=== PATIENT | female | born 1935 | race Caucasian/White ===

== ENCOUNTER 2017-02-14 06:48 | Inpatient (IN) | payer MEDICARE ==
[~2017-02-14] VITALS: Ht 182.9 cm; Wt 86.9 kg
[~2017-02-14 06:48] MED LIST: CEFU250T11 PO; DCS100C PO; DULO30CA3 PO; GABA; GABA400C PO; GABAPENTIN PO; KCL10CCR PO; LORA1TAB PO; LRZ1T PO; MEMA10TA PO; NEBI5TAB8 PO; PREG75CA PO; QTP100T PO; QTP200T PO; QUET100T PO; QUET50TA PO; SULF-222 PO; VALS320T8 PO; ZPR20C PO; [UNRECOGNIZED DRUG - CODE] IM
--- OUTSIDE RECORDS SUMMARY | 2017-02-14 06:53 | XMS REPORT | Continuity of Care Document ---
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9 CHRONIC KIDNEY DIS NOS 05/05/2012 ZACH UMANA MD 790.6 ABN BLOOD CHEMISTRY NEC 10/23/2012 MOLLY BARNES, DALIA R Ot 276.0 10/23/2012 MOLLY BARNES, DALIA R Ot 294.10 10/23/2012 MOLLY BARNES, DALIA R Ot 331.0 10/23/2012 MOLLY BARNES, DALIA R Ot 401.9 10/23/2012 MOLLY BARNES, DALIA R Ot 584.9 10/23/2012 MOLLY BARNES, DALIA R Ot V03.82 04/23/2014 Ot 369.00 04/23/2014 Ot 782.1 04/23/2014 ANN CONWAY RETIREMENT CONSULTANT Ot 599.0 04/23/2014 ANN CONWAY RETIREMENT CONSULTANT Ot 780.60 04/28/2014 JOHN FOX MD Ot 294.10 04/28/2014 JOHN FOX MD Ot 331.0 04/28/2014 JOHN FOX MD Ot 780.09 04/28/2014 JOHN FOX MD Ot 780.39 Procedures Code [place] [address] ELECTROCARDIOGRAM REPORT TIN BRYAN MD 04/20/2012 Results Encounters ACCT No. Visit Date/Time Discharge Status Pt. Type Provider Facility Loc./Unit Complaint [id number] 04/20/2012 16:05:00 05/05/2012 14 :20:00 DIS Inpatient ZACH UMANA MD [facility] [id number] 04/20/2012 16:05:00 04/20/2012 23 :59:59 CLS Outpatient TIN BRYAN MD [id number] 12/17/2008 15:55:00 Document Registration [id number] 04/28/2014 07:55:00 2014 11:17:00 DIS Emergency RUDDY BARNES, JOHN Oneil [facility] ER [id number] 04/23/2014 12:34:00 2014 14:08:00 DIS Emergency ANN CONWAY APRN [facility] ER [id number] 11/01/2012 16:11:00 2012 23:59:59 CLS Outpatient [id number] 10/18/2012 10:53:00 2012 15:00:00 DIS Inpatient MOLLY BARNES, DALIA Merrill [address] [id number] 12/18/2011 13:49:00 Document Registration [id number] 03/08/2011 05:40:00 Document Registration [id number] 03/03/2011 10:47:00 Document Registration
[2017-02-14] MEDS: NS IV 500 ML 500 ML IV ONE ×2 (07:00→07:15)
[2017-02-14 07:01] LABS: BASOPHILS % (AUTO) 0 % (0-10); EOSINOPHILS % (AUTO) 0 % (0-10); LYMPHOCYTES # (AUTO) 0.3 X 10^3 (1.0-4.0); LYMPHOCYTES % (AUTO) 3 % (12-44); MEAN CORPUSCULAR HEMOGLOBIN 31 PG (25-34); MEAN CORPUSCULAR HGB CONC 33 G/DL (32-36); MEAN CORPUSCULAR VOLUME 92 FL (80-99); MEAN PLATELET VOLUME 10.3 FL (7.4-10.4); MONOCYTES # (AUTO) 0.3 X 10^3 (0.0-1.0); MONOCYTES % (AUTO) 3 % (0-12); NEUTROPHILS % (AUTO) 93 % (42-75); PLATELET COUNT 226 10^3/uL (130-400); RED BLOOD COUNT 4.42 10^6/uL (4.35-5.85); RED CELL DISTRIBUTION WIDTH 14.8 % (10.0-14.5); WHITE BLOOD COUNT 8.6 10^3/uL (4.3-11.0)
--- NOTE | 2017-02-14 07:02 | ED GI ---
General Chief Complaint: Abdominal/GI Problems Stated Complaint: GI BLEED Nursing Triage Note: per EMS patient had copious amounts of coffee ground emesis Sepsis Screen: No Definite Risk Source of Information: EMS, Long Term Records Exam Limitations: Physical Impairments (end-stage dementia) History of Present Illness Time Seen By Provider: 06:44 Initial Comments Patient has ER by EMS with a chief complaint per nursing staff. The patient was found about 5:30 this morning with copious amounts of black brown coffee-ground emesis appearing substance unquantified around the patient's mouth and on her person. She is unable to give any history given her early stage dementia. EMS says she has not spoke to them. This appears to be her baseline per her report. She is not on blood thinners or she express any trauma. She does not have a known history of GI bleed. She is not on a PPI. Nursing reported to EMS that last night she was found to have a temperature of 100 1201F and was given Tylenol. EMS reports afebrile at time of transport. Blood sugar is normal. No vomiting since EMS arrived and transported patient. Staff does not report any coughing or shortness of breath. When asked questions patient does not give any more than a grunt and reply. Does not follow commands. EMS has initiated a 20- gauge in the left antecubital fossa and started a 1 L normal saline. Allergies and Home Medications Allergies Coded Allergies: No Known Drug Allergies (Unverified , 03/03/11) Home Medications Cefuroxime Axetil 250 Mg Tablet, 250 MG PO BID for 10 Days, (Reported) 10 day course, started on 10-14-12 Docusate Sodium 100 Mg Capsule, 100 MG PO DAILY, (Reported) Duloxetine Hcl 30 Mg Cap, 30 MG PO DAILY, (Reported) Nebivolol Hcl 5 Mg Tablet, 5 MG PO DAILY, (Reported) Pregabalin 75 Mg Capsule, 75 MG PO BID, (Reported) Quetiapine Fumarate 100 Mg Tablet, 100 MG PO HS, (Reported) Trimethoprim/Sulfamethoxazole 1 Ea Tablet, 1 EA PO BID, #10 Prescribed by: ANN CONWAY on 04/23/14 1344 Valsartan 320 Mg Tablet, 320 MG PO DAILY, (Reported) Review of Systems Constitutional: see HPI (patient is demented and unable to give a review of systems.) Past Lyhqlcm-Fzpuyx-Aoozic Hx Patient Social History Alcohol Use: Denies Use Recreational Drug Use: No Smoking Status: Unknown if Ever Smoked Recent Foreign Travel: No Contact w/Someone Who Travel: No Recent Infectious Disease Expo: No Immunizations Up To Date Date of Pneumonia Vaccine: Oct 19, 2012 Date of Influenza Vaccine: Dec 26, 2013 Seasonal Allergies Seasonal Allergies: No Respiratory History of Respiratory Disorde: No Cardiovascular History of Cardiac Disorders: Yes Cardiac Disorders: Hypertension Neurological History of Neurological Disord: Yes (ALZHEIMERS) Reproductive System Hx Reproductive Disorders: No Gastrointestinal History of Gastrointestinal Di: Yes (CONSTIPATION) Musculoskeletal History of Musculoskeletal Dis: Yes (RANDOM JERKY MOVEMENTS) Endocrine History of Endocrine Disorders: No Psychosocial History of Psychiatric Problem: Yes (DELUSIONAL) Integumentary History of Skin or Integumenta: No Blood Transfusions History of Blood Disorders: No Physical Exam Vital Signs VS - Last 72 Hours, by Label 02/14/17 06:51 Temp 99.5 Pulse 113 Resp 18 B/P (MAP) 184/93 Pulse Ox 96 Capillary Refill : Less Than 3 Seconds General Appearance: no apparent distress HEENT: PERRL/EOMI, pharynx normal (absent of any coffee-ground emesis, dried blood or other brown/black substance.) Neck: non-tender, supple, normal inspection Respiratory: chest non-tender, lungs clear, normal breath sounds Cardiovascular: normal peripheral pulses, regular rate, rhythm, no edema, tachycardia (110-120) Peripheral Pulses: 2+ Dorsalis Pedis (R), 2+ Left Dors-Pedis (L), 2+ Radial Pulses (R), 2+ Radial Pulses (L) Gastrointestinal: normal bowel sounds, non tender, soft, No guarding, No tenderness, No mass Extremities: normal inspection, no pedal edema, normal capillary refill Back: normal inspection, no CVA tenderness Neurologic/Psychiatric: other (GCS is 9 but this is consistent with her baseline as the patient has end-stage dementia with apparent contractures. Localizes to pain and gives grunts only.) Skin: normal color, warm/dry Focused Exam Evaluation Lactate Level Laboratory Tests 02/14/17 07:25: Lactic Acid Level 2.37*H Lactic Acid Level Laboratory Tests Test 02/14/17 07:25 Lactic Acid Level 2.37 MMOL/L (0.50-2.00) *H Progress/Results/Core Measures Results/Orders Lab Results Laboratory Tests Test 02/14/17 06:53 02/14/17 07:00 02/14/17 07:25 Range/Units White Blood Count 8.6 4.3-11.0 10^3/uL Red Blood Count 4.42 4.35-5.85 10^6/uL Hemoglobin 13.5 11.5-16.0 G/DL Hematocrit 41 35-52 % Mean Corpuscular Volume 92 80-99 FL Mean Corpuscular Hemoglobin 31 25-34 PG Mean Corpuscular Hemoglobin Concent 33 32-36 G/DL Red Cell Distribution Width 14.8 H 10.0-14.5 % Platelet Count 226 130-400 10^3/uL Mean Platelet Volume 10.3 7.4-10.4 FL Neutrophils (%) (Auto) 93 H 42-75 % Lymphocytes (%) (Auto) 3 L 12-44 % Monocytes (%) (Auto) 3 0-12 % Eosinophils (%) (Auto) 0 0-10 % Basophils (%) (Auto) 0 0-10 % Neutrophils # (Auto) 8.0 H 1.8-7.8 X 10^3 Lymphocytes # (Auto) 0.3 L 1.0-4.0 X 10^3 Monocytes # (Auto) 0.3 0.0-1.0 X 10^3 Eosinophils # (Auto) 0.0 0.0-0.3 10^3/uL Basophils # (Auto) 0.0 0.0-0.1 10^3/uL Neutrophils % (Manual) 91 % Lymphocytes % (Manual) 3 % Band Neutrophils 6 % Blood Morphology Comment NORMAL Prothrombin Time 13.1 12.2-14.7 SEC INR Comment 1.0 0.8-1.4 Activated Partial Thromboplast Time 25 24-35 SEC Sodium Level 141 135-145 MMOL/L Potassium Level 4.4 3.6-5.0 MMOL/L Chloride Level 107 98-107 MMOL/L Carbon Dioxide Level 23 21-32 MMOL/L Anion Gap 11 5-14 MMOL/L Blood Urea Nitrogen 25 H 7-18 MG/DL Creatinine 1.15 0.60-1.30 MG/DL Estimat Glomerular Filtration Rate 45 BUN/Creatinine Ratio 22 Glucose Level 203 H 70-105 MG/DL Calcium Level 8.6 8.5-10.1 MG/DL Magnesium Level 1.8 1.8-2.4 MG/DL Total Bilirubin 1.2 H 0.1-1.0 MG/DL Aspartate Amino Transf (AST/SGOT) 118 H 5-34 U/L Alanine Aminotransferase (ALT/SGPT) 160 H 0-55 U/L Alkaline Phosphatase 58 40-136 U/L Total Protein 7.3 6.4-8.2 GM/DL Albumin 3.6 3.2-4.5 GM/DL Urine Color YELLOW Urine Clarity VERY CLOUDY H Urine pH 6 5-9 Urine Specific Cato 1.025 H 1.016-1.022 Urine Protein 2+ H NEGATIVE Urine Glucose (UA) NEGATIVE NEGATIVE Urine Ketones NEGATIVE NEGATIVE Urine Nitrite POSITIVE H NEGATIVE Urine Bilirubin NEGATIVE NEGATIVE Urine Urobilinogen NORMAL NORMAL MG/DL Urine Leukocyte Esterase 3+ H NEGATIVE Urine RBC (Auto) 4+ H NEGATIVE Urine RBC RARE /HPF Urine WBC >100 H /HPF Urine Squamous Epithelial Cells TNTC H /HPF Urine Crystals NONE /LPF Urine Bacteria MODERATE H /HPF Urine Casts NONE /LPF Urine Mucus NEGATIVE /LPF Urine Culture Indicated NO Lactic Acid Level 2.37 *H 0.50-2.00 MMOL/L My Orders Orders - VIOLETTA KIDD Ct Abdomen/Pelvis Wo (02/14/17 06:54) Cbc With Automated Diff (02/14/17 06:54) Comprehensive Metabolic Panel (02/14/17 06:54) Magnesium (02/14/17 06:54) Ua Culture If Indicated (02/14/17 06:54) Chest 1 View, Ap/Pa Only (02/14/17 06:54) Manual Differential (02/14/17 06:53) Lactic Acid Analyzer (02/14/17 07:08) Blood Culture (02/14/17 07:08) Sputum Culture (02/14/17 07:08) Protime With Inr (02/14/17 07:08) Partial Thromboplastin Time (02/14/17 07:08) O2 (02/14/17 07:08) Saline Lock/Iv-Start (02/14/17 07:08) Vital Signs Adult Sepsis Patie Q1H (02/14/17 07:08) Remove Rings In Anticipation O (02/14/17 07:08) Ns Iv 500 Ml (Sodium Chloride 0.9%) (02/14/17 07:08) Ceftriaxone Injection (Rocephin Injectio (02/14/17 07:15) Ns Iv 1000 Ml (Sodium Chloride 0.9%) (02/14/17 08:15) Medications Given in ED Current Medications Medications Dose Ordered Sig/Abhinav Route Start Time Stop Time Status Last Admin Dose Admin Ceftriaxone Sodium 1000 mg/ Sodium Chloride 50 ml @ 100 mls/hr ONCE ONCE IV 02/14/17 07:15 02/14/17 07:44 DC 02/14/17 07:31 100 MLS/HR Sodium Chloride 500 ml @ 0 mls/hr Q0M ONCE IV 02/14/17 07:08 02/14/17 07:10 DC 02/14/17 07:00 0 MLS/HR Vital Signs/I&O Vital Sign - Last 12Hours 02/14/17 06:51 Temp 99.5 Pulse 113 Resp 18 B/P (MAP) 184/93 Pulse Ox 96 Blood Pressure Mean: 123 Progress Note #1: Time: 07:04 Progress Note I don't see any evidence of any coffee-ground emesis however she does have an emesis we will collect it and do a Hemoccult. Patient's belly is nonacute we will get a CT scan since were not able to get any good history from her rectum for evidence of emergent pathology. However is more likely the patient has nausea and vomiting secondary to infection especially given her tachycardia. She is afebrile so we'll get a CBC looking for evidence of leukocytosis and if we see that we will start a sepsis workup. She has received Tylenol last night so her being afebrile is not the most convincing evidence against sepsis. We'll go ahead and do a sepsis workup. We'll go ahead and allow her to get her full liter of fluids and may give her some more for that. We'll get a straight catheter urine collection. Another source to explain what the staff saw might also be her lungs, phlegm so we will get a chest x-ray. She has no adventitious lung sounds on exam. She is not on blood thinners nor she have any apparent respiratory history based on her medication history. 0720: Urine has quite a few squames and it however it also has nitrites. We'll start with Rocephin and get a sepsis workup. Progress Note #2: Time: 08:14 Progress Note Patient has sepsis with the lactate elevated above 2 and stones in the gallbladder and elevated transaminases of uncertain significance clinically. Certainly seems to have a UTI with nitrite-positive urine despite the 2 numerous to count squames it was a straight catheter. We will have her admitted for sepsis, UTI and follow-up her resolution to antibiotics and fluids. Diagnostic Imaging Diagonstic Imaging: Xray Plain Films/CT/US/NM/MRI: chest Comments Poor inspiratory effort. Prominent bronchial markings. No acute infiltrate seen. No acute osseous or soft tissue abnormality. [facility] [place], [place] NAME: YOVANNY KELLY [facility] REC#: [id number] PT STATUS: REG ER : 1935 PHYSICIAN: VIOLETTA KIDD MD ADMIT DATE: 02/14/17/ER Draft Date of Exam:02/14/17 CHEST 1 VIEW, AP/PA ONLY INDICATION: GI bleed COMPARISON: 04/23/2014 FINDINGS: Single frontal view of the chest demonstrates normal heart size and pulmonary vascularity. The lungs show low inspiratory volumes with platelike atelectasis of both casey. Otherwise, no focal alveolar consolidation is identified. No large pleural effusion or pneumothorax is seen. The visualized osseous structures show no acute abnormalities. IMPRESSION: 1. Low lung volumes with platelike atelectasis and bilateral hilar regions. Otherwise, no acute cardiopulmonary process. Dictated on workstation # [id number] Dict: 02/14/17 0723 Trans: 02/14/17 0725 [facility] [id number] Interpreted by: JAYLYN QUARLES MD Electronically signed by: Reviewed: Reviewed by Me Diagonstic Imaging: CT Plain Films/CT/US/NM/MRI: abdomen, pelvis (without contrast) Comments Gallbladder with stones. No free fluid or air in the abdomen or pelvis. Bowels are decompressed. No evidence of obstruction. Aorta with calcifications and no dilatation seen. Bilateral atrophic ureters and kidneys without hypertrophy or distention. No intra-abdominal inflammatory changes seen. No acute osseous abdomen mildly seen. [facility]. [place] NAME: YOVANNY KELLY [facility] REC#: [id number] PT STATUS: REG ER : 1935 PHYSICIAN: VIOLETTA KIDD MD ADMIT DATE: 02/14/17/ER Draft Date of Exam:02/14/17 CT ABDOMEN/PELVIS WO PROCEDURE: CT abdomen and pelvis without contrast. TECHNIQUE: Multiple contiguous axial images were obtained through the abdomen and pelvis without the use of intravenous contrast. INDICATION: GI bleed. COMPARISON: None. FINDINGS: Lung bases are partially obscured secondary to motion artifact, note is made of moderate hiatal hernia and calcification in the mitral and aortic valves. CT ABDOMEN: Normal appendix is identified. Small bowel loops are nondistended. There is cholelithiasis. Evaluation of the liver demonstrates diffuse hypodense appearance with relative sparing adjacent to the falciform ligament consistent with hepatic steatosis. The kidneys, adrenal glands, spleen, and pancreas have an unremarkable noncontrast CT appearance. There is no loculated fluid collection, free fluid, nor free air within the abdomen. No abnormal mesenteric or retroperitoneal adenopathy is seen, note is made of diffuse calcified aortic and arch are atherosclerosis. Bony structures show no acute abnormalities. CT PELVIS: Urinary bladder is unopacified. No calculi are seen within a bladder. Is no likelier fluid collection, free fluid, nor free air within the pelvis. No abnormal lymph nodes are identified. Bony structures show no acute abnormalities. IMPRESSION: 1. Cholelithiasis. 2. Hepatic steatosis. 3. Other nonacute findings as described above. Dictated on workstation # [id number] Dict: 02/14/17 0746 Trans: 02/14/17 0802 [facility] [id number] Interpreted by: JAYLYN QUARLES MD Electronically signed by: Reviewed: Reviewed by Me Departure Communication (Admissions) Time/Spoke to Admitting Phy: 08:[address] Banks: Impression Impression: Primary Impression: Coffee ground emesis Additional Impressions: Sepsis Qualified Codes: A41.9 - Sepsis, unspecified organism UTI (urinary tract infection) Qualified Codes: N30.00 - Acute cystitis without hematuria Disposition: 01 HOME, SELF-CARE Condition: Stable Admissions Decision to Admit Reason: Admit from ER (General) Decision to Admit/Date: Feb 14, 2017 Time/Decision to Admit Time: 08:27 Departure-Patient Inst. Referrals: DALIA BARNES MD (PCP/Family) Primary Care Physician Copy Copies To 1: DALIA BARNES MD, TITUS J Feb 14, 2017 07:01
[2017-02-14] MEDS ORDERED: cefTRIAXone INJECTION 1,000 MG in NS (IVPB) 50 ML IV ONE (07:15)
[2017-02-14 07:17] LABS: BILIRUBIN,URINE NEGATIVE (NEGATIVE); KETONES,URINE NEGATIVE (NEGATIVE); LEUKOCYTE ESTERASE ,URINE 3+ (NEGATIVE); NITRITE,URINE POSITIVE (NEGATIVE); PH,URINE 6 (5-9); PROTEIN,URINE 2+ (NEGATIVE); SQUAMOUS EPITHELIAL CELL,UR TNTC /HPF; UROBILINOGEN,URINE NORMAL (NORMAL); WBC,URINE >100 /HPF
[2017-02-14 07:18] LABS: PROTHROMBIN TIME PATIENT 13.1 SEC (12.2-14.7)
[2017-02-14 07:19] LABS: ALBUMIN 3.6 GM/DL (3.2-4.5); BILIRUBIN,TOTAL 1.2 MG/DL (0.1-1.0); CALCIUM 8.6 MG/DL (8.5-10.1); CREATININE SERUM 1.15 MG/DL (0.60-1.30); MAGNESIUM 1.8 MG/DL (1.8-2.4); POTASSIUM 4.4 MMOL/L (3.6-5.0); TOTAL PROTEIN 7.3 GM/DL (6.4-8.2)
--- NOTE | 2017-02-14 07:25 | Diagnostic Imaging Report ---
INDICATION: GI bleed COMPARISON: 04/23/2014 FINDINGS: Single frontal view of the chest demonstrates normal heart size and pulmonary vascularity. The lungs show low inspiratory volumes with platelike atelectasis of both casey. Otherwise, no focal alveolar consolidation is identified. No large pleural effusion or pneumothorax is seen. The visualized osseous structures show no acute abnormalities. IMPRESSION: 1. Low lung volumes with platelike atelectasis and bilateral hilar regions. Otherwise, no acute cardiopulmonary process. Dictated by: Dictated on workstation # [id number]
[2017-02-14 07:30] LABS: BAND NEUTROPHILS 6 %; LYMPHOCYTES % (MANUAL) 3 %; NEUTROPHILS % (MANUAL) 91 %
--- NOTE | 2017-02-14 08:02 | Diagnostic Imaging Report ---
PROCEDURE: CT abdomen and pelvis without contrast. TECHNIQUE: Multiple contiguous axial images were obtained through the abdomen and pelvis without the use of intravenous contrast. INDICATION: GI bleed. COMPARISON: None. FINDINGS: Lung bases are partially obscured secondary to motion artifact, note is made of moderate hiatal hernia and calcification in the mitral and aortic valves. CT ABDOMEN: Normal appendix is identified. Small bowel loops are nondistended. There is cholelithiasis. Evaluation of the liver demonstrates diffuse hypodense appearance with relative sparing adjacent to the falciform ligament consistent with hepatic steatosis. The kidneys, adrenal glands, spleen, and pancreas have an unremarkable noncontrast CT appearance. There is no loculated fluid collection, free fluid, nor free air within the abdomen. No abnormal mesenteric or retroperitoneal adenopathy is seen, note is made of diffuse calcified aortic and arch are atherosclerosis. Bony structures show no acute abnormalities. CT PELVIS: Urinary bladder is unopacified. No calculi are seen within a bladder. Is no likelier fluid collection, free fluid, nor free air within the pelvis. No abnormal lymph nodes are identified. Bony structures show no acute abnormalities. IMPRESSION: 1. Cholelithiasis. 2. Hepatic steatosis. 3. Other nonacute findings as described above. Dictated by: Dictated on workstation # [id number]
[2017-02-14] MEDS ORDERED: NS IV 1000 ML 1,000 ML IV ONE (08:15)
[2017-02-14] MEDS ORDERED: NS IV 500 ML 500 ML IV ONE (09:25)
[2017-02-14] MEDS ORDERED: MAG355OR17 PO (10:01)
[2017-02-14] MEDS ORDERED: CLOB15CR2 TOP (10:01)
[2017-02-14] MEDS ORDERED: ACET325T38 PO (10:01)
[2017-02-14] MEDS ORDERED: [UNRECOGNIZED DRUG - OTHER] TOP (10:01)
[2017-02-14] MEDS ORDERED: MAGN400O7 PO (10:01)
[2017-02-14] MEDS ORDERED: DOCU100T2 PO (10:01)
[2017-02-14] MEDS ORDERED: NEBI5TAB8 PO (10:01)
[2017-02-14] MEDS ORDERED: NFVALS90T PO (10:01)
[2017-02-14] MEDS ORDERED: ONDANSETRON 4 MG/2 ML (SDV) Z0FRAN IVP PRN ×3 (10:45→13:45)
[2017-02-14] MEDS ORDERED: ACETAMINOPHEN 500 MG TAB (TYLENOL) PO PRN ×3 (10:45→13:45)
[2017-02-14] MEDS ORDERED: NS (IVPB) 250 ML IV SCH (11:00)
--- NOTE | 2017-02-14 11:06 | History & Physical-Hospitalist ---
HPI History of Present Illness: HPI/Chief Complaint Pt is an 81yo CF with a PMH of end stage dementia who is completely nonverbal due to the dementia. All history is obtained from the chart and family. Cousin who is primary shank boner reports that she has no other family (was never and has no children). He states that in the past 9-10 years she has slowly worsened. At baseline she lies in bed and does not talk. 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 He states she seemed well yesterday and then was called this morning about coffee like vomit and was told she was being sent here. She was found to have a UTI in the ER and meet severe sepsis criteria with a lactic acidosis and transaminitis. Source: family Exam Limitations: clinical condition Date Seen 02/14/17 Time Seen by Provider: 10:30 Attending Physician Salome Banks MD PCP Eyal Riley MD Referring Physician Date of Admission Feb 14, 2017 at 8:30 am Home Medications & Allergies Home Medications Reviewed patient Home Medication Reconciliation Form Allergies Allergies Coded Allergies No Known Drug Allergies (Kctztudgyt11/20/17) Past Pcqojwd-Jwczlu-Ovrsgn Hx Patient Social History Marrital Status: single Employed/Student: retired Alcohol Use: Denies Use Recreational Drug Use: No Smoking Status: Unknown if Ever Smoked Physical Abuse Screen: No Sexual Abuse: No Recent Foreign Travel: No Contact w/other who traveled: No Recent Infectious Disease Expo: No Immunizations Up To Date Date of Pneumonia Vaccine: Oct 19, 2012 Date of Influenza Vaccine: Jan 31, 2017 Seasonal Allergies Seasonal Allergies: No Respiratory No Cardiovascular Yes Hypertension Neurological Yes (ALZHEIMERS) Dementia Reproductive System Hx Reproductive Disorders: No Gastrointestinal Yes (CONSTIPATION) Musculoskeletal Yes (RANDOM JERKY MOVEMENTS) Endocrine History of Endocrine Disorders: No Cancer No Psychosocial History of Psychiatric Problem: Yes (DELUSIONAL) Integumentary History of Skin or Integumenta: No Blood Transfusions History of Blood Disorders: No Family Medical History Significant Family History: No Pertinent Family Hx Review of Systems ROS-Unable to Obtain: Due to end stage dementia- nonverbal Constitutional: see HPI Physical Exam Physical Exam Vital Signs Vital Sign - Last 12Hours 02/14/17 06:51 Temp 99.5 Pulse 113 Resp 18 B/P (MAP) 184/93 Pulse Ox 96 Capillary Refill : Less Than 3 Seconds General Appearance: Chronically ill, Other (unresponsive) HEENT: PERRL/EOMI, Other (dry mucus mebranes) Respiratory: Lungs Clear, No Accessory Muscle Use, No Respiratory Distress Cardiovascular: No JVD, No Murmur, Tachycardia Gastrointestinal: Normal Bowel Sounds, Soft, No Distended, No Guarding Extremity: Normal Capillary Refill, Non Tender, No Calf Tenderness Neurologic/Psychiatric: Aphasia, Disoriented x3 Skin: Normal Color, Warm/Dry Results Results/Procedures Lab Laboratory Tests 02/14/17 06:53 Assessment/Plan Admission Diagnosis Severe Sepsis due to UTI Diagnosis/Problems Diagnosis/Problems (1) Severe sepsis Status: Acute Assessment & Plan: UTI likely source Rocephin in ER Lactic Acid 2.43 Continue IVF- no hypotension so no need for 30cc/kg bolis blood cultures drawn in the ER await urine culture (2) UTI (urinary tract infection) Status: Acute Assessment & Plan: Continue Rocephin Await culture Qualifiers: Qualified Codes: N30.00 - Acute cystitis without hematuria (3) Coffee ground emesis Status: Acute Assessment & Plan: Hgb 13.5 No evidence of GI bleed Cousin has declined any invasive procedures should she have a GI bleed Will check H&H with next lactic acid (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 Assessment & Plan: Nonverbal Hardly eats per cousin's report Advised hospice Palliative Consult placed (5) Transaminitis Assessment & Plan: Likely due to sepsis (6) Essential (primary) hypertension Assessment & Plan: BP very elevated Will resume home meds (7) Counseling regarding end of life decision making Assessment & Plan: Discussed her baseline and very low quality of life I recommended hospice, Cousin interested Palliative care consult placed (8) Prophylactic measure Assessment & Plan: SCDs given concern coffee ground emesis NS at 250cc/hr NPO except meds right now SALOME BANKS MD Feb 14, 2017 11:06 am
[2017-02-14] MEDS ORDERED: CATHETER FLUSH 10 ML SYR IV PRN (14:00)
[2017-02-14] MEDS: NS IV 1000 ML 1,000 ML IV SCH ×2 (14:10→18:09)
[2017-02-14 17:16] VITALS: BP 168/76
[2017-02-14 20:00] VITALS: BP 168/76
[2017-02-15 00:30] VITALS: BP 167/87
[2017-02-15] MEDS: NS IV 1000 ML 1,000 ML IV SCH ×2 (01:40→03:51)
[2017-02-15 04:35] VITALS: BP 173/80
[2017-02-15 06:29] LABS: BASOPHILS % (AUTO) 0 % (0-10); EOSINOPHILS % (AUTO) 0 % (0-10); LYMPHOCYTES % (AUTO) 18 % (12-44); MEAN CORPUSCULAR HEMOGLOBIN 31 PG (25-34); MEAN CORPUSCULAR HGB CONC 33 G/DL (32-36); MEAN CORPUSCULAR VOLUME 92 FL (80-99); MEAN PLATELET VOLUME 10.3 FL (7.4-10.4); MONOCYTES # (AUTO) 0.5 X 10^3 (0.0-1.0); MONOCYTES % (AUTO) 9 % (0-12); NEUTROPHILS # (AUTO) 4.2 X 10^3 (1.8-7.8); NEUTROPHILS % (AUTO) 73 % (42-75); PLATELET COUNT 173 10^3/uL (130-400); RED BLOOD COUNT 3.87 10^6/uL (4.35-5.85); RED CELL DISTRIBUTION WIDTH 14.9 % (10.0-14.5); WHITE BLOOD COUNT 5.8 10^3/uL (4.3-11.0)
[2017-02-15 06:55] LABS: ALANINE AMINOTRANSFERASE 140 U/L (0-55); ALBUMIN 3.2 GM/DL (3.2-4.5); ANION GAP 9 MMOL/L (5-14); ASPARTATE AMINO TRANSFERASE 83 U/L (5-34); BLOOD UREA NITROGEN 16 MG/DL (7-18); BUN/CREATININE RATIO 19; CALCIUM 8.2 MG/DL (8.5-10.1); CARBON DIOXIDE 20 MMOL/L (21-32); CHLORIDE 113 MMOL/L (98-107); CREATININE SERUM 0.84 MG/DL (0.60-1.30); GFR ESTIMATED > 60; GLUCOSE 132 MG/DL (70-105); POTASSIUM 3.5 MMOL/L (3.6-5.0); SODIUM 142 MMOL/L (135-145); TOTAL PROTEIN 6.4 GM/DL (6.4-8.2)
[2017-02-15] MEDS ORDERED: 1/2 NS IV SOLUTION 1,000 ML IV SCH (07:30)
[2017-02-15 08:00] VITALS: BP 183/93
[2017-02-15] MEDS: NEBIVOLOL 5 MG TAB (BYSTOLIC) PO SCH ×2 (08:29→08:38)
[2017-02-15] MEDS: 1/2 NS IV SOLUTION 1,000 ML IV SCH ×2 (08:29→20:51)
[2017-02-15] MEDS: VALSARTAN 80 MG (DIOVAN) TAB PO SCH ×2 (08:30→08:38)
[2017-02-15] MEDS ORDERED: NITROGLYCERIN 2% OINT 1 GM UNIT DOSE PACKET TOP NR (08:51)
[2017-02-15] MEDS ORDERED: cefTRIAXone INJECTION 1,000 MG in NS (IVPB) 50 ML IV SCH (09:00)
[2017-02-15] MEDS: POTASSIUM CL 10MEQ/50ML IVPB 50 ML IV SCH ×2 (09:27→10:30)
--- NOTE | 2017-02-15 11:26 | Progress Note-Hospitalist ---
Subjective HPI/CC On Admission Date Seen by Provider: Feb 15, 2017 Time Seen by Provider: 09:45 Pt is an 81yo CF with a PMH of end stage dementia who is completely nonverbal due to the dementia. All history is obtained from the chart and family. Cousin who is primary tool grinding machine operator reports that she has no other family (was never and has no children). He states that in the past 9-10 years she has slowly worsened. At baseline she lies in bed and does not talk. He has hired 3 people to visit her every day to gymnastics coach her to drink or she otherwise would not. He states she seemed well yesterday and then was called this morning about coffee like vomit and was told she was being sent here. She was found to have a UTI in the ER and meet severe sepsis criteria with a lactic acidosis and transaminitis. Subjective/Events-last exam Pt is sleeping, minimally responsive, and nonverbal. Unable to provide ROS. Per RN had difficulty swallowing this AM. Objective Exam Vital Signs Vital Sign - Last 12Hours 02/14/17 02/15/17 06:51 00:30 Temp 99.5 Pulse 113 Resp 18 B/P (MAP) 184/93 Pulse Ox 96 O2 Delivery Room Air Capillary Refill : Less Than 3 Seconds General Appearance: WD/WN, Chronically ill Respiratory: Lungs Clear, No Respiratory Distress Cardiovascular: Regular Rate, Rhythm, No Murmur Gastrointestinal: Normal Bowel Sounds, Non Tender, Soft Extremity: Non Tender, No Calf Tenderness Neurologic/Psychiatric: Aphasia, Disoriented x3, Other (minimally responsive) Results/Procedures Lab Laboratory Tests 02/14/17 12:30 02/15/17 06:18 Assessment/Plan Assessment and Plan Assess & Plan/Chief Complaint UTI Diagnosis/Problems Diagnosis/Problems (1) UTI (urinary tract infection) Status: Acute Assessment & Plan: Continue Rocephin Day 2/3 Await culture Qualifiers: Qualified Codes: N30.00 - Acute cystitis without hematuria (2) Severe sepsis Status: Resolved Assessment & Plan: UTI likely source Rocephin in ER Lactic Acidosis resolved blood cultures drawn in the ER await urine culture (3) Coffee ground emesis Status: Resolved Assessment & Plan: Hgb actually went up yesterday Unlikely to be GI bleed Cousin has declined any invasive procedures should show signs of bleeding (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 Assessment & Plan: Nonverbal Hardly eats per cousin's report Advised hospice Palliative Consult placed, family has elected [facility] (5) Transaminitis Status: Acute Assessment & Plan: Likely due to sepsis (6) Essential (primary) hypertension Status: Chronic Assessment & Plan: BP very elevated Cannot take oral meds Nitro paste ordered (7) Counseling regarding end of life decision making Assessment & Plan: Discussed her baseline and very low quality of life I recommended hospice, Cousin interested Palliative care consult placed Given cousin is guardian he will have to petition the court for a DNR status out of the hospital Social work consulted for assistance (8) Prophylactic measure Assessment & Plan: SCDs 1/2NS at 100cc/hr Diet as tolerated SALOME SADLER MD Feb 15, 2017 11:26 am
[2017-02-15 12:00] VITALS: BP 198/102
[2017-02-15] MEDS ORDERED: cloNIDine 0.1 MG PATCH (CATAPRES TTS) TDSY TD SCH (12:30)
[2017-02-15 16:00] VITALS: BP 174/105
[2017-02-15] MEDS: NITROGLYCERIN 2% OINT 1 GM UNIT DOSE PACKET TOP SCH ×3 (17:33→23:59)
[2017-02-15 20:00] VITALS: BP 174/80
[2017-02-16] VITALS: BP 181/84
[2017-02-16 04:00] VITALS: BP 151/90
[2017-02-16] MEDS: 1/2 NS IV SOLUTION 1,000 ML IV SCH ×2 (05:30→13:43)
[2017-02-16 05:36] VITALS: BP 187/83
[2017-02-16] MEDS: NITROGLYCERIN 2% OINT 1 GM UNIT DOSE PACKET TOP SCH ×2 (05:46→11:44)
[2017-02-16 08:00] VITALS: BP 130/82
[2017-02-16] MEDS ORDERED: cefTRIAXone 1 GM (ROCEPHIN) VIAL IM NR (08:00)
[2017-02-16] MEDS ORDERED: LIDOCAINE 1% INJ 20 ML (XYLOCAINE) VIAL INJ NR (08:00)
[2017-02-16] MEDS ORDERED: CLON1PAT33 TD (08:08)
[2017-02-16] MEDS ORDERED: CEFD300C3 PO (08:09)
[2017-02-16] MEDS: NEBIVOLOL 5 MG TAB (BYSTOLIC) PO SCH (08:45)
[2017-02-16] MEDS ORDERED: cloNIDine 0.1 MG PATCH (CATAPRES TTS) TDSY TOP ONE (08:45)
[2017-02-16] MEDS: VALSARTAN 80 MG (DIOVAN) TAB PO SCH (08:46)
--- NOTE | 2017-02-16 10:05 | Discharge Summary-Hospitalist ---
Diagnosis/Chief Complaint Date of Admission Feb 14, 2017 at 8:30 am Date of Discharge Discharge Date: Feb 16, 2017 Admission Diagnosis Severe Sepsis due to UTI Discharge Diagnosis UTI (1) UTI (urinary tract infection) Status: Acute Assessment & Plan: Continue Rocephin Proteus grew on culture, no sensitivities yet Will transition to Omnicef per our antibiogram (2) Severe sepsis Status: Resolved Assessment & Plan: UTI likely source blood cultures NGTD As above (3) Coffee ground emesis Status: Resolved Assessment & Plan: Hgb actually went up yesterday Unlikely to be GI bleed Cousin has declined any invasive procedures should show signs of bleeding (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 Assessment & Plan: Nonverbal Hardly eats per cousin's report Advised hospice Palliative Consult placed, family has elected [facility] (5) Transaminitis Status: Acute Assessment & Plan: Likely due to sepsis (6) Essential (primary) hypertension Status: Chronic Assessment & Plan: Resume home meds (7) Counseling regarding end of life decision making Assessment & Plan: Discussed her baseline and very low quality of life I recommended hospice, Cousin interested Palliative care consult placed Given cousin is guardian he will have to petition the court for a DNR status out of the hospital Social work consulted for assistance Will DC back to NH with hospice (8) Prophylactic measure Assessment & Plan: SCDs Diet as tolerated Saline Lock Discharge Summary Discharge Physical Examination Allergies: Coded Allergies: No Known Drug Allergies (Unverified , 02/14/17) Vitals & I&Os Vital Signs Date Time Temp Pulse Resp B/P (MAP) Pulse Ox O2 Delivery O2 Flow Rate FiO2 02/16/17 08:00 97.8 92 22 130/82 96 Room Air Hospital Course Pt is an 81yoCF with a PMH of end stage dementia who presented for reports of coffee ground emesis. There was no evidence of a GI bleed during admission and her guardian, Prabhu, elected no to pursue invasive measures (such as an EGD). Hemoglobin was stable around 13. She was found to have a UTI and met severe sepsis criteria with a lactic acidosis. She was treated accordingly with antibiotics and fluids. Urine culture grew proteus and was was treated with 3 days of Rocephin and transitioned to Omnicef to complete course as outpatient. Given her poor quality of life and worsening dementia discussions were had about end of life care. Prabhu elected to pursue hospice and she was discharged back to her [facility] on hospice. Labs (last 24 hrs) Microbiology 02/14/17 Blood Culture - Preliminary, Resulted No growth 02/14/17 Urine Culture - Preliminary, Resulted Proteus Species Discharge Home Medications: Active Scripts Active Cefdinir 300 Mg Capsule 300 Mg PO BID 4 Days Clonidine TTS 1 Patch (Clonidine) 1 Each Patch.tdwk 0.1 Mg TD TU@0900 Reported Milk of Magnesia (Magnesium Hydroxide) 400 Mg/5 Ml Oral.susp 30 Ml PO DAILY PRN Maalox Maximum Strength Susp (Mag Hydrox/Al Hydrox/Simeth) 355 Ml Oral.susp 30 Ml PO DAILY PRN [U-Alexander] TOP DAILY PRN HYDROCORTISONE ACETATE- UREA CREAM 1-10% Diovan (Valsartan) 320 Mg Tab 320 Mg PO DAILY HOLD FOR SBP LESS THAN 70 AND NOTIFY MD FOR OVER 180 Clobetasol Propionate 15 Gm Cream..g. TOP Q12H PRN Tylenol (Acetaminophen) 325 Mg Tablet 650 Mg PO Q4H PRN TAKES 2 (325MG) TABLETS Docusate Sodium 100 Mg Tablet 100 Mg PO DAILY Instructions to patient/family Please see electronic discharge instructions given to patient. Clinical Quality Measures DVT/VTE Risk/Contraindication: Risk Factor Score Per Nursin RFS Level Per Nursing on Admit: 4+=Very High Sepsis: Within 3hrs of presentation: Admin fluids, Admin ABX, Blood cultures prior to ABX's, D/C Instructions given to patient, Lactate level Comfort Measures/ Type of Care: Hospice Care (Home) Copy Copies To 1: DALIA BARNES MD Problem Qualifiers (1) UTI (urinary tract infection): Urinary tract infection type: acute cystitis Hematuria presence: without hematuria Qualified Codes: N30.00 - Acute cystitis without hematuria SALOME SADLER MD Feb 16, 2017 10:05 am
[2017-02-16 12:00] VITALS: BP 134/88
[2017-02-22] MEDS ORDERED: CLONIDINE PATCH REMOVAL TP SCH (08:59)
== END 2017-02-16 16:30 | disposition hospice, inpatient (51) | DRG 872 ==
LOC: EDUNIT# 06:48 → ER 06:49 → 4TH 08:30
PROVIDERS: ADMIT Family Medicine; ATTEND Family Medicine
DX: A41.9 Sepsis, unspecified organism (principal); R65.20 Severe sepsis without septic shock; N39.0 Urinary tract infection, site not specified; E87.2 Acidosis; K92.0 Hematemesis; G30.9 Alzheimer's disease, unspecified; F02.80 Dementia in other diseases classified elsewhere, unspecified severity, without behavioral disturbance, psychotic disturbance, mood disturbance, and anxiety; Z66 Do not resuscitate; I10 Essential (primary) hypertension; K59.00 Constipation, unspecified; R74.0 Nonspecific elevation of levels of transaminase and lactic acid dehydrogenase [LDH]
CPT/HCPCS: 36415; 71010; 74176; 80053; 81000; 83605; 83735; 85007; 85014; 85018; 85025; 85027; 85610; 85730; 87040; 87077; 87088; 87186; 96361; 96365

== ENCOUNTER → 2017-04-09 | Outpatient (CLI) | payer MEDICARE ==
[~2017-04-09] MED LIST changes: +ACET325T38 PO; +CEFD300C3 PO; +CLOB15CR2 TOP; +CLON1PAT33 TD; +DOCU100T2 PO; +MAG355OR17 PO; +MAGN400O7 PO; +NFVALS90T PO; +[UNRECOGNIZED DRUG - OTHER] TOP
[2017-04-09 18:47] LABS: BILIRUBIN,URINE NEGATIVE (NEGATIVE); CLARITY,URINE SLIGHTLY CLOUDY; COLOR,URINE YELLOW; GLUCOSE, URINE (UA) NEGATIVE (NEGATIVE); KETONES,URINE NEGATIVE (NEGATIVE); LEUKOCYTE ESTERASE ,URINE NEGATIVE (NEGATIVE); NITRITE,URINE NEGATIVE (NEGATIVE); PH,URINE 6.5 (5-9); PROTEIN,URINE NEGATIVE (NEGATIVE); UROBILINOGEN,URINE NORMAL (NORMAL)
[2017-04-09 18:57] LABS: BACTERIA,URINE TRACE /HPF
== END ==
LOC: LABNPT 18:42
PROVIDERS: ATTEND Family Medicine
DX: N39.0 Urinary tract infection, site not specified (principal)
CPT/HCPCS: 81000

== ENCOUNTER → 2017-10-27 | Outpatient (CLI) | payer MEDICARE ==
--- NOTE | 2017-10-27 16:15 | Diagnostic Imaging Report ---
PROCEDURE: CT abdomen without contrast. TECHNIQUE: Multiple contiguous axial images were obtained through the abdomen without the use of intravenous contrast. INDICATION: Abnormal liver function tests. CORRELATION STUDY: 02/14/2017. FINDINGS: Minimal areas of atelectasis and/or scarring about the lung bases. Heart size is normal. There is dense valvular calcification at the level of the mitral valve. Scattered coronary artery calcification is present. Liver size appears to be within normal limits. There is however rather pronounced diffuse low attenuation compatible with hepatic steatosis. Gallbladder is slightly distended and appears to contain multiple gallstones, noncalcified. There is suggestion of some gallbladder wall thickening. No significant bile duct dilatation; however, the common bile duct does appear to be slightly more prominent from prior study. Diffuse fatty atrophic change about the pancreas. The spleen and adrenal glands appear unremarkable. Abdominal aorta with mild wall calcification, nonaneurysmal. No pathologically enlarged central or retroperitoneal lymph nodes with a few upper abdominal hepatic lymph nodes. Kidneys with asymmetric atrophic changes and thinning of the left renal parenchyma. Slightly lobulated nodular appearance about the superior pole left kidney. There is interval development of calcification within the left renal pelvis and proximal left ureter. At least two if not three stones are present. Largest measures 12 x 5 mm. Small hiatal hernia. Visualized small bowel unremarkable. Mild severity fecal retention in the visualized portion of the colon particularly transverse colon. No upper abdominal ascites. Osseous structures demonstrate diffuse bony demineralization. IMPRESSION: 1. Rather pronounced changes of hepatic steatosis. 2. Multiple cholesterol gallstones are present. There does appear to be presence of gallbladder wall thickening. The common bile duct appears to be within normal limits. It does appear to be slightly more prominent compared to prior imaging. If further assessment is desired, ultrasound and/or nuclear medicine HIDA scan would be recommended. 3. Asymmetric atrophic changes of the left kidney. Development of small staghorn type calculus at the left renal pelvis and proximal ureter. Mild obstruction. Dictated by: Dictated on workstation # [id number]
== END ==
LOC: RAD 12:12
PROVIDERS: ATTEND Family Medicine
DX: K76.0 Fatty (change of) liver, not elsewhere classified (principal); K80.20 Calculus of gallbladder without cholecystitis without obstruction; N20.2 Calculus of kidney with calculus of ureter; N26.1 Atrophy of kidney (terminal)
CPT/HCPCS: 74150

== ENCOUNTER 2019-01-02 12:55 | Outpatient (CLI) | payer MEDICARE ==
[2019-01-02 13:00] VITALS: BP_SYST 0; BP_SYST 145; BP_DIAS 0; BP_DIAS 97
== END 2019-01-02 15:00 | disposition home or self-care (01) ==
LOC: SDC 12:55
PROVIDERS: ATTEND Internal Medicine
DX: N39.0 Urinary tract infection, site not specified (principal)
CPT/HCPCS: 36569; 76937

== ENCOUNTER → 2019-03-06 | Outpatient (CLI) | payer MEDICARE | LOC: LABNPT 15:40 | PROVIDERS: ATTEND Internal Medicine | DX: B86 Scabies (principal) | CPT/HCPCS: 87220 ==

== ENCOUNTER → 2019-04-19 | Outpatient (CLI) | payer MEDICARE | LOC: LABNPT 17:48 | PROVIDERS: ATTEND Nurse Practitioner | DX: F32.9 Major depressive disorder, single episode, unspecified (principal); G30.9 Alzheimer's disease, unspecified; F06.4 Anxiety disorder due to known physiological condition; I10 Essential (primary) hypertension; E56.9 Vitamin deficiency, unspecified; K59.00 Constipation, unspecified; M62.81 Muscle weakness (generalized); R47.01 Aphasia | CPT/HCPCS: 87070; 87077; 87205 ==